=== PATIENT | female | born 1980 | race Two or more races ===

== ENCOUNTER 2018-08-06 02:07 | Emergency (ER) | payer SELFPAY ==
[2016-07-23 06:25] VITALS: BP 120/74
[~2018-08-06] VITALS: Ht 160 cm; Wt 56.7 kg
[~2018-08-06 02:07] MED LIST: ASPI1TAB31 PO; HYDR-3164 PO; LEVO500T59 PO; METR500T PO
--- NOTE | 2018-08-06 02:53 | PHYS DOC ---
Past Medical History Past Medical History: No Pertinent History Past Surgical History: No Surgical History Alcohol Use: None Drug Use: None Adult General HPI HPI Patient is a 38 year old female brought in by ambulance after a cardiac arrest. It was unwitnessed she went down into the basement to do a workout when she did not come up after a while the family went down to check on her and they found her in a pool of blood. They called 911 and paramedics arrival the patient was in PE a unknown downtime initiated CPR they intubated the patient they did multiple rounds of epinephrine 6 rounds of epinephrine added 500 mL of normal saline the blood sugar was within normal limits. They did eventually at one point have a rhythm changed to V. fib so they shocked her but then she went back and PE and then asystole due to the rhythm change she was transported to the emergency room there total downtime on scene was 20 minutes but there was an unknown downtime before that. Patient has no previous medical history and seemed fine before she went down into the basement. They did not hear her scream or yell at all. Review of Systems Review of Systems patel by metnal status Allergies Allergies Allergies Coded Allergies Type Severity Reaction Last Updated Verified No Known Drug Allergies 09/05/14 No Physical Exam Physical Exam Constitutional: Obtunded HENT: Normocephalic, atraumatic, bilateral external ears normal, ET tube is in place there is no signs of head trauma There is blood on the face. Eyes: Pupils are fixed and dilated Neck: Normal range of motion, no tenderness, supple, no stridor. [] Cardiovascular no pulse noted throughout the ER course. No cardiac activity is heard lungs are clear with bagging only. Abdomen: soft, no tenderness, no masses, Skin: Warm, dry, no erythema, no rash. [] Extremities: No tenderness, no cyanosis, Neurologic: Obtunded fixed dilated pupils [] EKG EKG [] Radiology/Procedures Radiology/Procedures [] Course & Med Decision Making Course & Med Decision Making Pertinent Labs and Imaging studies reviewed. (See chart for details) []38-year-old female came in with a cardiac arrest downtime unknown in total but at least 20 minutes on scene. We worked on her for another at least 20 minutes in the emergency room we gave several rounds of epinephrine we gave amiodarone we confirmed placement of the ET tube with breath sounds as well as end-tidal CO2 which was downtrending throughout the ER course as low as low teens. Patient never had a pulse never had a shockable rhythm. Was in PE a throughout. We gave bicarbonate we gave calcium we gave fluids We did do a several bedside ultrasounds that did still show some cardiac activity in the beginning however this was slowing down and her heart rate and the PDA was down into the 30s she had an agonal rhythm with no pulse for over 45 minutes and actually probably longer than that following did call the code. 2 :32 AM family was notified condolences were given. Critical care time was 40 minutes exclusive of procedures. Dragon Disclaimer Dragon Disclaimer This electronic medical record was generated, in whole or in part, using a voice recognition dictation system. Departure Departure Impression: Primary Impression: Cardiac arrest Disposition: 20 Condition: Referrals: VARGHESE TANG MD (PCP) RAVI MORALES MD Aug 06, 2018 02:53
[2018-08-06] MEDS ORDERED: POLYVINYL ALCOHOL 1.4% OPHTH SOLUTION 15ML BOTTLE. OU ONE (03:30)
[2018-08-06] MEDS ORDERED: EPINEPHrine SYRINGE 1 MG/10 ML SYRINGE ONE (18:00)
[2018-08-06] MEDS ORDERED: CALCIUM CHLORIDE 1,000 MG/10 ML DISP.SYRIN ONE (18:00)
[2018-08-06] MEDS ORDERED: AMIODARONE 150 MG/3 ML VIAL ONE (18:00)
[2018-08-06] MEDS ORDERED: SODIUM BICARB ADULT 8.4% 50 MEQ/50 ML DISP.SYRIN. ONE (18:00)
== END 2018-08-06 04:00 | disposition expired ==
LOC: ER 02:07
DX: I46.9 Cardiac arrest, cause unspecified (principal); H57.04 Mydriasis
CPT/HCPCS: 31500; 99291; J0171; J0282; J3490